=== PATIENT | male | born 1985 | race Native Hawaiian/Other Pacific Islander ===

== ENCOUNTER 2022-09-23 10:12 | Outpatient (CLI) | payer OTHER ==
[2022-09-23 10:37] LABS: POTASSIUM 4.6 mmol/L (3.6-5.2)
== END 2022-09-23 22:55 | disposition home or self-care (01) ==
LOC: LAB 10:12
PROVIDERS: ATTEND Nurse Practitioner Family
DX: I10 Essential (primary) hypertension (principal); E78.49 Other hyperlipidemia; E11.9 Type 2 diabetes mellitus without complications
CPT/HCPCS: 80048; 80061; 80076; 82550; 83036; 84484

== ENCOUNTER 2023-01-24 19:38 | Emergency (ER) | payer OTHER ==
[~2023-01-24] VITALS: Ht 188 cm; Wt 117.9 kg
[2023-01-24 20:08] LABS: PLATELET COUNT 152 K/uL (142-355)
[2023-01-24 20:11] LABS: POTASSIUM 3.5 mmol/L (3.6-5.2)
[2023-01-24 20:31] LABS: PARTIAL THROMBOPLASTIN TIME 25.9 SECONDS (23.9-36.7)
[2023-01-24 20:40] VITALS: BP 155/87; TEMP 98.1
== END 2023-01-24 20:40 | disposition short-term general hospital (02) ==
LOC: ED 19:38
PROVIDERS: Family Medicine
DX: I21.9 Acute myocardial infarction, unspecified (principal); I21.3 ST elevation (STEMI) myocardial infarction of unspecified site; E11.9 Type 2 diabetes mellitus without complications; I63.9 Cerebral infarction, unspecified; E78.5 Hyperlipidemia, unspecified
CPT/HCPCS: 36415; 80053; 84484; 85027; 85610; 85730; 93005; 96365; 96375; 99285; J1644; J2270; J3490